=== PATIENT | male | born 1980 | race Caucasian/White ===

== ENCOUNTER 2016-05-17 16:00 | Outpatient (RCR) | payer BC | END 2016-06-16 15:53 | disposition home or self-care (01) | LOC: PT 16:00 | PROVIDERS: ATTEND Internal Medicine | DX: M25.511 Pain in right shoulder (principal); M25.811 Other specified joint disorders, right shoulder ==

== ENCOUNTER → 2016-06-27 | Outpatient (CLI) | payer BC | LOC: LAB 15:01 | PROVIDERS: ATTEND Internal Medicine | DX: L02.32 Furuncle of buttock (principal); R21 Rash and other nonspecific skin eruption | CPT/HCPCS: 87081 ==

== ENCOUNTER → 2016-09-12 | Outpatient (REF) | payer BC ==
[~2016-09-12] MED LIST: HYDR-3702 PO
[2016-09-12 18:02] LABS: BASOPHILS % (AUTO) 1 % (0-2); EOSINOPHILS # (AUTO) 0.1 10^3uL; EOSINOPHILS % (AUTO) 1 % (0-4); LYMPHOCYTES # (AUTO) 1.9 X10^3; MEAN CORPUSCULAR HGB CONC 34.9 g/dL (31.0-37.0); MEAN CORPUSCULAR VOLUME 90 FL (80-100); MEAN PLATELET VOLUME 9.6 FL (6.0-9.5); MONOCYTES # (AUTO) 0.8 X10^3; MONOCYTES % (AUTO) 10 % (3-11); NEUTROPHILS # (AUTO) 4.9 X10^3; NEUTROPHILS % (AUTO) 63 % (51-67); PLATELET COUNT 218 10^3uL (150-450); WHITE BLOOD COUNT 7.77 10^3uL (4.0-11.0)
[2016-09-12 18:04] LABS: MEAN CORPUSCULAR HEMOGLOBIN 31.3 PG (26.0-34.0)
[2016-09-12 19:06] LABS: ERYTHROCYTE SEDIMENTATION RT* 5 mm/hr (0-12)
== END ==
LOC: LAB 17:57
PROVIDERS: ATTEND Internal Medicine
DX: R59.0 Localized enlarged lymph nodes (principal); L20.89 Other atopic dermatitis
CPT/HCPCS: 83615; 85025; 85652